=== PATIENT | male | born 1985 | race Caucasian/White ===

== ENCOUNTER 2024-06-25 03:25 | Day surgery (SDC) | payer OTHER ==
[2024-06-25] VITALS (193 sets, daily range): BP systolic 72–142; BP diastolic 30–109
[~2024-06-25] VITALS: Ht 185.4 cm; Wt 70.3 kg
[2024-06-25] MEDS ORDERED: cloNIDine HCL 0.1 MG/TAB PO PRN (07:30)
[2024-06-25] MEDS ORDERED: PANTOPRAZOLE SODIUM Sesquihydr 40 MG/TAB PO PRN (07:30)
[2024-06-25] MEDS ORDERED: LACTATED RINGER'S 1,000 ML IV PRN ×2 (07:30→10:15)
[2024-06-25] MEDS ORDERED: diazePAM 5 MG/TAB PO PRN ×2 (07:30→08:30)
[2024-06-25] MEDS ORDERED: SCOPOLAMINE 1.5 MG DIS TD PRN (07:30)
[2024-06-25] MEDS ORDERED: CYANOCOBALAMIN 500 MCG/TAB ( B12) PO PRN (07:30)
[2024-06-25] MEDS ORDERED: ALBUTEROL SULFATE 2.5 MG VIAL IN PRN (07:30)
[2024-06-25] MEDS ORDERED: SODIUM CHLORIDE 0.9% 1,000 ML IV PRN ×3 (07:30→19:00)
[2024-06-25] MEDS ORDERED: FAMOTIDINE 20 MG/TAB PO PRN (07:30)
[2024-06-25] MEDS ORDERED: ASCORBIC ACID 4,000 MG in SODIUM CHLORIDE 0.9% 1,000 ML IV SCH (08:00)
--- NOTE | 2024-06-25 08:00 | NUR ---
Arrival & Pre-treatment Patient arrived to the [facility] suite, identification and demographics confirmed. Patient to room 8, AAO, ambulatory, vitals obtained, ID/allergy/fall bands placed, changed into hospital gown, GALINA hose, and non-slip socks. Procedure and timeline explained for treatment and discharge. All questions answered and the patient presents no concerns at this time.
--- NOTE | 2024-06-25 08:30 | NUR ---
Dr. Rosales telephoned with patient intake information including usage, dose, last dose/time taken and initial vital signs. Patient history and allergies reviewed with MD. Orders received for 10 + 5 PRN mg PO Valium and 0.3 mg PO Clonidine now. Will reassess per protocol in 1.5 hours and update MD with assessment and vitals. Patient medicated per MD orders. In addition to Clonidine and Valium, patient received 1000 mcg B12 PO, 20 mg Pepcid PO, and Scopolamine TD patch. Medication indication and education provided prior to administration. SN REVIEWED PATIENT'S BELONGINGS. PATIENT HAS HIS CLOTHES, PACK OF SMOKES AND A CELL PHONE, ALL OF WHICH HAS BEEN PLACED IN ANR LOCKER RED2. SN FOUND NO CONTRIBAND .
[2024-06-25 09:19] LABS: ALBUMIN 4.1 g/dL (3.2-5.0); CREATININE 0.8 mg/dL (0.7-1.3); TOTAL PROTEIN 6.9 g/dL (6.3-8.2)
[2024-06-25 09:26] LABS: BILIRUBIN, TOTAL 0.5 mg/dL (0.2-1.3)
[2024-06-25 09:36] LABS: POTASSIUM 4.2 mmol/l (3.5-5.1)
[2024-06-25 09:53] LABS: BASO% 0.4 % (0-3); EOS% 2.2 % (0-8); HEMATOCRIT 40.6 % (39.0-50.0); HEMOGLOBIN 13.4 g/dl (14.0-18.0); IMMATURE GRANULOCYTES 0.3 % (0.0-5.0); LYMPH% 45.4 % (15-41); MEAN CELL VOLUME 91.2 fL CALC (80.0-100.0); MEAN CORPUSCULAR HGB 30.1 pG CALC (26.0-32.0); MONO% 9.6 % (2-13); NEUT# 3.08 thou/uL (1.82-7.42); NEUT% 42.1 % (42-76); RED BLOOD COUNT 4.45 mill/uL (4.70-6.10); RED CELL DISTRI WIDTH 12.3 % (11.5-15.5)
--- NOTE | 2024-06-25 10:00 | NUR ---
Patient resting comfortably in bed. Easily aroused, maintains focus, and drifts back to sleep. No signs of active withdrawal or distress noted at this time. Continuous SPO2, rhythm, and respiratory monitoring initiated. IVF @ 250 mL/HR, room air, VSS.
[2024-06-25] MEDS ORDERED: cloNIDine HYDROCHLORIDE 100 MCG/ML 10 ML INJ IV PRN (10:15)
[2024-06-25] MEDS ORDERED: LIDOCAINE HCL 1% (10MG/ML) 100 MG/10 ML MDV VT PRN ×2 (10:15)
[2024-06-25] MEDS ORDERED: OCTREOTIDE ACETATE 100 MCG/VIAL SDV SC PRN (10:15)
[2024-06-25] MEDS ORDERED: ONDANSETRON HCl 4 MG/2 ML SDV IV PRN ×3 (10:15→19:00)
[2024-06-25] MEDS ORDERED: MAGNESIUM SULFATE HEPTAHYDRATE 100 ML IV PRN (10:15)
[2024-06-25] MEDS ORDERED: THIAMINE HCL 100 MG/ML 2ML VIAL IV PRN (10:15)
[2024-06-25] MEDS ORDERED: SUCCINYLCHOLINE CHLORIDE 20 MG/ML 10ML VIAL IV PRN (10:15)
[2024-06-25] MEDS ORDERED: POTASSIUM CHLORIDE 20 MEQ/100 ML BAG IV PRN (10:15)
[2024-06-25] MEDS ORDERED: NALTREXONE HCL 50 MG/TAB VT PRN (10:15)
[2024-06-25] MEDS ORDERED: ROCURONIUM BROMIDE 10 MG/ML 5ML VIAL IV PRN (10:15)
[2024-06-25] MEDS ORDERED: cloNIDine HCL 0.1 MG/TAB VT PRN (10:15)
[2024-06-25] MEDS ORDERED: PROPOFOL 10 MG/ML 100ML VIAL IV PRN (10:15)
[2024-06-25] MEDS ORDERED: LIDOCAINE HCL 1% (10MG/ML) 100 MG/10 ML MDV IV PRN (10:15)
[2024-06-25] MEDS ORDERED: DiphenhydrAMINE HCL 50 MG/ML SDV IV PRN (10:15)
[2024-06-25] MEDS ORDERED: diazePAM 5 MG/TAB VT PRN (10:15)
[2024-06-25] MEDS ORDERED: STERILE WATER FOR IRRIGATION 1,000 ML BTL IR PRN (10:15)
[2024-06-25] MEDS ORDERED: MIDAZOLAM HCL 2 MG/2 ML VIAL IV PRN ×3 (10:15→14:55)
[2024-06-25] MEDS ORDERED: PROPOFOL 100 ML IV PRN (10:15)
--- NOTE | 2024-06-25 10:55 | NUR ---
Induction Note Patient to [facility] procedure room. Time out performed at 1055. Patient placed on monitors, Jodi hugger, bilateral wrist restraints applied for ET tube protection. Versed 5mg given IV push at 1056 Tourniquet applied to RIGHT arm Lidocaine 100mg given at 1057 IV push followed by Rocoronium 10mg at 1058 IV push and held for 90 seconds. Propofol bolus of 130mg given at 1100 IV push. Succinylcholine 80mg given IV push at 1101. Smooth intubation with 7.5 ETT. Positive CO2. Positive Auscultation for air exchange. Patient placed on ventilator for spontaneous ventilation. Placed on Propofol IV drip at 1102. OG inserted. Positive air on auscultation. Positive gastric content. Stomach washed at this time.
--- NOTE | 2024-06-25 11:30 | NUR ---
OG close note Stomach washed at this time. Naltrexone 50 mg with Clonidine 0 mg via OG tube. OG will be clamped for 45 minutes.
[2024-06-25] MEDS ORDERED: DEXMEDETOMIDINE HCL IN SODIUM 100 ML IV PRN (11:50)
--- NOTE | 2024-06-25 12:15 | NUR ---
OG open note OG open at this time. Gastric content draining into drainage bag. OG to drain for 45 minutes. Propofol will be titrated down based on patient.
--- NOTE | 2024-06-25 13:00 | NUR ---
OG close note Stomach washed at this time. Naltrexone 50 mg with Clonidine 0 mg via OG tube. OG will be clamped for 45 minutes.
--- NOTE | 2024-06-25 14:30 | NUR ---
OG close note Stomach washed at this time. Naltrexone 50 mg with Clonidine 0.2 mg via OG tube. OG will be clamped for 45 minutes.
[2024-06-25] MEDS ORDERED: KLONOPIN2 MG PO (15:09)
[2024-06-25] MEDS ORDERED: NALTREXONE50 MG PO (15:09)
[2024-06-25] MEDS ORDERED: CLONIDINE0.1 MG PO (15:09)
--- NOTE | 2024-06-25 16:00 | NUR ---
OG close note Stomach washed at this time. Naltrexone 12.5 mg with Clonidine 0.2 mg via OG tube. OG will be clamped for 30 minutes.
--- NOTE | 2024-06-25 16:30 | NUR ---
OG open note OG open at this time. Gastric content draining into drainage bag. OG to drain . Propofol will be titrated down based on patient.
--- NOTE | 2024-06-25 16:35 | NUR ---
Extubation note Closing medications given Benadryl 50mg IV push, Decadron 10mg IV push,Magnesium 4 grams IV, Zofran 8mg IV push, Octreotide 100mcg SC. Stomach washed out prior to extubation. Suctioned gastric content. OG removed. Patient extubated. Propofol Discontinued. Wrist restraints removed. Jodi hugger Removed. See AN[facility] Moderate sedate recovery record for further notes and assessment.
--- NOTE | 2024-06-25 17:05 | NUR ---
PATIENT ARRIVED TO [facility]; 2L OF O2; BREATHING UNLABORED; BEDSIDE REPORT FROM [facility]; PERSONAL ITEMS IN ANR LOCKER; NO S/S OF DISTRESS; GITA HUGGER APPLIED; EYE COVERING APPLIED; IV SITE CLEAN AND INTACT RUNNING WITH NS @100; CALL LIGHT WITHIN REACH; BED IN LOWEST POSTION;SAFETY MEASURES IN PLACE
--- NOTE | 2024-06-25 17:05 | NUR ---
TRANSER NOTE Patient transferred to medical-surgical unit. Report given to receiving nurse at bedside. Treatment, medications, I/O, IV access reviewed with RN. All questions answered. IVF to continue at 100 ml/hr, NC @ 2L, no adventitious breath sounds. Safety precautions in place, bed locked and in lowest position, call light in reach. PATIENT MEDICATED WITH 2MG OF VERSED UPON ARRIVAL TO [facility] FOR AGGITATION. SN SPOKE WITH PATIENT'S GIRLFRIEND AND UPDATE ON PATIENT WAS GIVEN.
[2024-06-25] MEDS ORDERED: HALOPERIDOL LACTATE 5 MG/ML SDV IV SCH (18:45)
[2024-06-25] MEDS ORDERED: PROMETHAZINE HCL 12.5 MG in SODIUM CHLORIDE 0.9% 50 ML IV PRN (19:00)
[2024-06-25] MEDS ORDERED: HALOPERIDOL LACTATE 5 MG/ML SDV IV PRN (19:00)
[2024-06-25] MEDS ORDERED: PROMETHAZINE HCL 25 MG in SODIUM CHLORIDE 0.9% 50 ML IV PRN (19:00)
[2024-06-25] MEDS ORDERED: ACETAMINOPHEN 1,000 MG/100 ML VIAL IV PRN (19:00)
[2024-06-25] MEDS ORDERED: KETOROLAC TROMETHAMINE 30 MG/ML SDV IV PRN (19:00)
[2024-06-25] MEDS ORDERED: ACETAMINOPHEN 500 MG TAB PO PRN (19:00)
[2024-06-25] MEDS ORDERED: PATIENT' OWN MED CONTROLLED 1 EA DOSE IV PRN (21:00)
[2024-06-25] MEDS ORDERED: diazePAM 5 MG/TAB PO SCH (21:22)
--- NOTE | 2024-06-25 21:30 | NUR ---
PT WAS STILL PRESENTING RESTLESS. UNABLE TO LAY STILL OR SLEEP. CONTNUES TO TOSS AND TURN IN BED. WAS INFORMED, TORB FOR VALIUM PO FAXED TO PHARMACY. ADMINSITERED MEDICATION PER EMAR AND PT TOLERATED WELL. DENIES AND N/V AT THIS TIME. ENCOURAGED PT TO REST, INFOMRED OF IMPORTANCE FOR SLEEP DURING RECOVERY PROCESS. BED ALARM ON AND SAFETY PRECAUTIONS IN PLACE. SITTER AT DOORWAY.
[2024-06-25] MEDS ORDERED: clonazePAM 1 MG/TAB PO PRN (23:00)
[2024-06-25] MEDS ORDERED: cloNIDine HCL 0.1 MG/TAB PO SCH (23:00)
--- NOTE | 2024-06-26 | NUR ---
SCHEDULED MEDS ADMINSITERED PER EMAR WELL PRN MED FOR AGITATION. PT TOLERATED MEDS WELL. DENIES ANY N/V/P. PT C/O RESTLESSNESS AND PRESENTS VERY DROWSY, GOING IN AND OUT OF ORIENTATION. IS ABLE TO FOLLOW COMMANDS AND MAKE NEEDS KNOWN. STAFF HAVE ASSIST PT WITH AMBULATING TO BATHROOM AND BACK. SHUFFLING GAIT. VOIDS W/O DIFFICULTY. PT IS LAYING IN BED AT THIS TIME. RESTING COMFORTABLY, WILL TWITCH OR FLAIL EXTREMETIES EVERY SO OFTEN. UNABLE TO RECONNECT IVF AT THIS TIME DUE TO PT ATTEMPTS AT PULLING AT LINES AND INABILITY TO LAY STILL. ENCOURAGED AND REINFORCED REST. VSS. NO S/S OF DISTRESS. BED ALARM ON AND SAFETY PRECAUTIONS IN PLACE.
[2024-06-26 03:27] VITALS: BP 110/52
[2024-06-26] MEDS ORDERED: NALTREXONE HCL 50 MG/TAB PO SCH (04:00)
[2024-06-26] MEDS ORDERED: cloNIDine HCL 0.1 MG/TAB PO PRN (04:00)
[2024-06-26] MEDS ORDERED: clonazePAM 1 MG/TAB PO PRN ×2 (04:00→08:00)
--- NOTE | 2024-06-26 04:30 | NUR ---
ADMINISTERED PRN MED FOR AGITATION PER EMAR. PT PRESENTING VERY RESTLESS, DID ATTEMPT TO RECONNECT PT BACK TO IVF BUT UNABLE DUE TO PT INABILITY TO LAY STILL IN BED. TOSSING, TURNING AND FLAILING LIMBS INTO BED RAILS. CONSISTENT REDIRECT NEEDED FOR PT TO FOLLOW COMMANDS. SCHEDULED MEDS WERE ADMINISTERED WELL. PT TOLERATED WELL. DENIES ANY N/V/P. VSS. NO S/S OF DISTRESS. BED ALARM ON AND SAFETY PRECAUTIONS IN PLACE. SITTER AT DOOREWAY.
[2024-06-26 04:43] LABS: HEMATOCRIT 36.9 % (39.0-50.0); HEMOGLOBIN 12.7 g/dl (14.0-18.0); IMMATURE GRANULOCYTES 0.2 % (0.0-5.0); LYMPH% 24.7 % (15-41); MEAN CELL VOLUME 89.3 fL CALC (80.0-100.0); MEAN CORPUSCULAR HGB 30.8 pG CALC (26.0-32.0); MEAN CORPUSCULAR HGB CONC 34.4 g/dL CAL (32.0-36.0); MONO% 4.6 % (2-13); NEUT# 4.17 thou/uL (1.82-7.42); NEUT% 70.5 % (42-76); RED BLOOD COUNT 4.13 mill/uL (4.70-6.10)
[2024-06-26 05:02] LABS: ALBUMIN 3.9 g/dL (3.2-5.0); BILIRUBIN, TOTAL 0.6 mg/dL (0.2-1.3); CREATININE 0.7 mg/dL (0.7-1.3); MAGNESIUM 2.3 mg/dL (1.6-2.3); POTASSIUM 4.8 mmol/l (3.5-5.1); TOTAL PROTEIN 6.5 g/dL (6.3-8.2)
[2024-06-26 07:40] VITALS: BP 120/81
[2024-06-26] MEDS ORDERED: cloNIDine HCL 0.1 MG/TAB PO SCH (08:00)
[2024-06-26] MEDS ORDERED: PANTOPRAZOLE SODIUM Sesquihydr 40 MG/TAB PO SCH (08:00)
[2024-06-26] MEDS ORDERED: ACETAMINOPHEN 325 MG/TAB PO SCH (08:00)
--- NOTE | 2024-06-26 08:24 | NUR ---
patient is a.o x1; still drowsy; writter ambulated patient to bathroom and assited back to bed; writter assited with helping patinet eat, he did tolerated several bites of yogurt; labs and status of patient was called to provider; attempted to run fluids, but patient tossing and turning; iv in RAC was found in bed with cath on, iv site was clean;patient is having moments of staying still and sleeping 10-15 mins; call light within reach; bedin lowest postion;safaty measures in place; bed alarm activated; writter at doorway
[2024-06-26] MEDS ORDERED: MAGNESIUM OXIDE 400 MG/TAB PO PRN (09:00)
[2024-06-26] MEDS ORDERED: Cholecalciferol 2,000 UNIT/TAB PO PRN (09:00)
[2024-06-26] MEDS ORDERED: ACETAMINOPHEN 500 MG TAB PO PRN (09:00)
--- NOTE | 2024-06-26 12:47 | NUR ---
PATIENT IN SHOWER AT THIS TIME, NO COMPLAITS
== END 2024-06-26 15:23 | disposition home or self-care (01) | DRG 897 ==
LOC: MS2 03:25 → ANR 03:25 → MS2 17:00 → ANR 06-26 15:23
PROVIDERS: ATTEND Anesthesiology
DX: F11.20 Opioid dependence, uncomplicated (principal)
CPT/HCPCS: J1100; J1200; J1630; J2354; J2405; J2704; J3475; J3480; J3490